=== PATIENT | male | born 1990 | race Caucasian/White ===

== ENCOUNTER 2019-02-10 19:02 | Emergency (ER) | payer OTHER ==
[~2019-02-10] VITALS: Ht 167.6 cm; Wt 83.9 kg
[2019-02-10 19:12] VITALS: BP 153/64
--- NOTE | 2019-02-10 19:21 | NUR ---
PT CAME TO ER C/O OF HEADACHE X 1 WEEK. PT STATES "PAIN STARTED WITH TOOTH ACHE." PT UNABLE TO SEE DENTIST. PAIN LEVEL 10/10 PRESSURE PAIN. PT IS SENSITIVE TO LIGHT. DENIES HEAD TRAUMA OR DIZZINESS. MED HX: HTN. SAFETY MEASURES IN PLACE. WAITING FOR ERMD TO EVALUATE PT.
[2019-02-10] MEDS ORDERED: KETOROLAC 15 MG/ML VIAL IM ONE (19:50)
[2019-02-10] MEDS ORDERED: BUPIVACAINE-MPF/EPI 0.25% 30 ML VIAL INJ ONE (19:50)
[2019-02-10] MEDS ORDERED: BUPIVACAINE-MPF 0.25% 30 ML VIAL INJ ONE (20:21)
--- NOTE | 2019-02-10 20:30 | NUR ---
PT STATED PAIN LEVEL DECREASED TO LEVEL 5/10.
[2019-02-10 21:25] VITALS: BP 134/100
--- NOTE | 2019-02-10 21:25 | NUR ---
Patient discharged with v/s stable. Written and verbal after care instructions given and explained. Patient alert, oriented and verbalized understanding of instructions. Ambulatory with steady gait. All questions addressed prior to discharge. ID band removed. Patient advised to follow up with PMD. Rx of PENICILLIN VK 250 MG given. Patient educated on indication of medication including possible reaction and side effects. Opportunity to ask questions provided and answered.
== END 2019-02-10 21:25 | disposition home or self-care (01) ==
LOC: MED 19:02
DX: K02.9 Dental caries, unspecified (principal); I10 Essential (primary) hypertension
CPT/HCPCS: 96372; 99283; J1885; J3490